=== PATIENT | female | born 1970 | race Caucasian/White ===

== ENCOUNTER 2017-01-22 12:43 | Emergency (ER) | payer OTHER, MEDICAID ==
[~2017-01-22] VITALS: Ht 165.1 cm; Wt 66.8 kg
[~2017-01-22 12:43] MED LIST: ACET-1770 PO; BISA10SU2 PR; DOCU-131 PO; ERTA1VIA IV; LORA1TAB PO; MAG355OR15 PO; MAGN400O7 PO; MULT-257 PO; NICO-486 TD; OXYC-302 PO; SENN-31 PO
[2017-01-22] MEDS ORDERED: MORPHINE SULFATE 4 MG/ML, 1ML IVPush PRN (14:30)
[2017-01-22] MEDS ORDERED: ONDANSETRON 2MG/ML, 2ML IVPush ONE (14:30)
[2017-01-22 14:37] LABS: HEMATOCRIT 43.2 % (34.6-47.8); HEMOGLOBIN 14.4 g/dL (11.7-16.4); WHITE BLOOD COUNT 10.7 x10^3/uL (3.4-10)
[2017-01-22] MEDS ORDERED: ONDANSETRON 2MG/ML, 2ML ONE (14:40)
[2017-01-22] MEDS ORDERED: MORPHINE SULFATE 4 MG/ML, 1ML ONE (14:40)
[2017-01-22] MEDS ORDERED: ASPIRIN 81 MG TABLET CHEW ONE (14:40)
[2017-01-22 14:43] LABS: ASPARTATE AMINO TRANSFERASE 17 U/L (15-37); BLOOD UREA NITROGEN 14 mg/dL (7-18)
[2017-01-22 14:48] LABS: IS PT STATUS REG ER OR PRE ER? YES
[2017-01-22] MEDS ORDERED: ASPIRIN 81 MG TABLET CHEW PO ONE (15:00)
[2017-01-22] MEDS ORDERED: SODIUM CHLORIDE FLUSH 10ML SYR IVF ONE (15:30)
[2017-01-22 15:32] VITALS: BP 136/68
== END 2017-01-22 15:37 | disposition home or self-care (01) ==
LOC: ED 13:53
DX: R07.89 Other chest pain (principal)
CPT/HCPCS: 36415; 71010; 80053; 83690; 84484; 85025; 93005; 96374; 96375; 99285; J2405

== ENCOUNTER 2017-07-24 19:13 | Emergency (ER) | payer MEDICARE, MEDICAID ==
[~2017-07-24] VITALS: Ht 165.1 cm; Wt 70.0 kg
[2017-07-24] MEDS ORDERED: LORazepam 1MG TABLET PO ONE (19:30)
[2017-07-24] MEDS ORDERED: LIDOCAINE 1%, 10ML INFIL ONE (19:30)
[2017-07-24] MEDS ORDERED: BACL20TA PO (19:33)
[2017-07-24] MEDS ORDERED: GABA300C PO (19:33)
[2017-07-24] MEDS ORDERED: LIDOCAINE-MPF 1%, 5ML ONE (19:34)
[2017-07-24] MEDS ORDERED: LORazepam 1MG TABLET ONE (19:40)
[2017-07-24] MEDS ORDERED: BACITRACIN ZINC OINT 500U/GM, 0.9 GM ONE (21:13)
[2017-07-25 00:44] VITALS: BP 143/79
== END 2017-07-25 01:04 | disposition home or self-care (01) ==
LOC: ED 22:38
DX: S01.81XA Laceration without foreign body of other part of head, initial encounter (principal); S61.210A Laceration without foreign body of right index finger without damage to nail, initial encounter; F10.20 Alcohol dependence, uncomplicated; W26.0XXA Contact with knife, initial encounter; Y93.89 Activity, other specified; Y92.009 Unspecified place in unspecified non-institutional (private) residence as the place of occurrence of the external cause; Y99.9 Unspecified external cause status
CPT/HCPCS: 12041; 12055; 36415; 86705; 86706; 86803; 87340; 87806; 99285; J3490; G0475